=== PATIENT | female | born 1995 | race Caucasian/White ===

== ENCOUNTER 2021-11-17 14:03 | Observation (INO) | payer OTHER, SELFPAY ==
[~2021-11-17] VITALS: Ht 170.2 cm; Wt 113.4 kg
[2021-11-17 14:53] VITALS: BP 168/92
[2021-11-17] MEDS: BETAMETH ACET/BETAMETH NA PH 30 MG/5 ML VIAL IM SCH (16:08)
[2021-11-17 16:22] LABS: BASOPHILS % (AUTO) 0.5 % (0.0-2.0); EOSINOPHILS # (AUTO) 0.1 K/uL (0-0.4); EOSINOPHILS % (AUTO) 0.7 % (0.0-4.0); HEMATOCRIT 31.2 % (36-48); HEMOGLOBIN 10.5 g/dL (12.0-16.0); LYMPHOCYTES # (AUTO) 2.5 K/uL (2.5-16.5); LYMPHOCYTES % (AUTO) 28.4 % (20.5-51.1); MEAN CORPUSCULAR HEMOGLOBIN 25 pg (27-31); MEAN CORPUSCULAR HGB CONC 34 g/dL (33-37); MEAN CORPUSCULAR VOLUME 74.9 fL (80-94); MONOCYTES # (AUTO) 0.5 K/uL (0.8-1.0); MONOCYTES % (AUTO) 5.7 % (1.7-9.3); NEUTROPHILS # (AUTO) 5.6 K/uL (1.8-7.7); NEUTROPHILS % (AUTO) 64.7 % (42.2-75.2); PLATELET COUNT (AUTO) 271 K/uL (140-450); RED BLOOD CELL COUNT(AUTO) 4.17 MIL/uL (4.20-5.40); RED CELL DISTRIBUTION WIDTH 14.6 % (11.6-13.7); WHITE BLOOD COUNT (AUTO) 8.7 K/uL (4.8-10.8)
[2021-11-17 16:48] LABS: PROTHROMBIN TIME 9.5 secs (10.8-13.4)
[2021-11-17 16:58] LABS: ALBUMIN 2.8 g/dL (3.4-5.0); ANION GAP 14.4 (8-16); CREATININE 0.5 mg/dL (0.6-1.3); POTASSIUM 3.4 mmol/L (3.5-5.1); TOTAL BILIRUBIN 0.2 mg/dL (0.0-1.0); URIC ACID 3.8 mg/dL (2.6-7.2)
[2021-11-17] MEDS: LABETALOL 100 MG TAB PO SCH (17:28)
[2021-11-17 21:57] LABS: BILIRUBIN,URINE NEGATIVE (NEGATIVE); BLOOD, URINE NEGATIVE (NEGATIVE); COLOR,URINE YELLOW (YELLOW); LEUKOCYTE ESTERASE ,URINE 2+ (NEGATIVE); NITRITE, URINE POSITIVE (NEGATIVE); UGLUCOSE NEGATIVE (NEGATIVE)
[2021-11-17 22:04] LABS: APPEARANCE,URINE HAZY (CLEAR)
[2021-11-17 22:16] LABS: RBC,URINE 0-5 /HPF (0-5)
[2021-11-17 23:12] LABS: URINE TOTAL PROTEIN 14.9 mg/dL (0-12)
--- NOTE | 2021-11-18 08:33 | NUR ---
PATIENT HAS BEEN SCREENED AND CATEGORIZED LOW NUTRITION RISK. PATIENT WILL BE SEEN WITHIN 7 DAYS OF ADMISSION. 11/24/[address]
[2021-11-18] MEDS: LABETALOL 100 MG TAB PO SCH ×2 (09:15→13:11)
[2021-11-18] MEDS: BETAMETH ACET/BETAMETH NA PH 30 MG/5 ML VIAL IM SCH (16:08)
== END 2021-11-18 16:45 | disposition home or self-care (01) ==
LOC: MFCC 14:03
PROVIDERS: ADMIT Obstetrics & Gynecology; ATTEND Obstetrics & Gynecology
DX: O13.3 Gestational [pregnancy-induced] hypertension without significant proteinuria, third trimester (principal); Z20.822 Contact with and (suspected) exposure to COVID-19; Z3A.33 33 weeks gestation of pregnancy
CPT/HCPCS: 36415; 76819; 80053; 81001; 82570; 84550; 85025; 85384; 85610; 85730; 86870; 86886; 86900; 86901; 87086; 87426; 96372; G0378; J0702; Q0092

== ENCOUNTER 2021-11-21 14:56 | Observation (INO) | payer OTHER, SELFPAY ==
[~2021-11-21] VITALS: Ht 167.6 cm; Wt 111.1 kg
[2021-11-21 17:09] VITALS: BP 147/86
== END 2021-11-21 17:00 | disposition home or self-care (01) ==
LOC: MLD 14:56
PROVIDERS: ADMIT Obstetrics & Gynecology; ATTEND Obstetrics & Gynecology
DX: O36.8330 Maternal care for abnormalities of the fetal heart rate or rhythm, third trimester, not applicable or unspecified (principal); Z3A.34 34 weeks gestation of pregnancy
CPT/HCPCS: 59025; 81000; G0378

== ENCOUNTER 2021-11-27 14:26 | Observation (INO) | payer OTHER, SELFPAY ==
[~2021-11-27] VITALS: Ht 167.6 cm; Wt 113.4 kg
[2021-11-27] MEDS ORDERED: LABE200T9 PO (15:09)
[2021-11-27] MEDS ORDERED: PREN-371 PO (15:09)
[2021-11-27 16:51] LABS: BASOPHILS % (AUTO) 0.5 % (0.0-2.0); EOSINOPHILS # (AUTO) 0.1 K/uL (0-0.4); EOSINOPHILS % (AUTO) 0.8 % (0.0-4.0); HEMATOCRIT 29.2 % (36-48); HEMOGLOBIN 9.6 g/dL (12.0-16.0); LYMPHOCYTES # (AUTO) 1.7 K/uL (2.5-16.5); LYMPHOCYTES % (AUTO) 20.4 % (20.5-51.1); MEAN CORPUSCULAR HEMOGLOBIN 24 pg (27-31); MEAN CORPUSCULAR HGB CONC 33 g/dL (33-37); MONOCYTES # (AUTO) 0.9 K/uL (0.8-1.0); MONOCYTES % (AUTO) 10.2 % (1.7-9.3); NEUTROPHILS # (AUTO) 5.8 K/uL (1.8-7.7); NEUTROPHILS % (AUTO) 68.1 % (42.2-75.2); PLATELET COUNT (AUTO) 257 K/uL (140-450); RED BLOOD CELL COUNT(AUTO) 3.95 MIL/uL (4.20-5.40); WHITE BLOOD COUNT (AUTO) 8.5 K/uL (4.8-10.8)
[2021-11-27 17:21] LABS: PROTHROMBIN TIME 9.2 secs (10.8-13.4)
[2021-11-27 17:23] LABS: ALBUMIN 2.5 g/dL (3.4-5.0); ANION GAP 12.7 (8-16); CREATININE 0.5 mg/dL (0.6-1.3); POTASSIUM 3.7 mmol/L (3.5-5.1); TOTAL BILIRUBIN 0.2 mg/dL (0.0-1.0); URIC ACID 3.7 mg/dL (2.6-7.2)
[2021-11-27 17:44] LABS: BILIRUBIN,URINE NEGATIVE (NEGATIVE); BLOOD, URINE NEGATIVE (NEGATIVE); LEUKOCYTE ESTERASE ,URINE 2+ (NEGATIVE); NITRITE, URINE POSITIVE (NEGATIVE); UGLUCOSE NEGATIVE (NEGATIVE)
[2021-11-27 17:57] LABS: APPEARANCE,URINE HAZY (CLEAR); COLOR,URINE STRAW (YELLOW)
[2021-11-27 18:05] LABS: RBC,URINE NONE SEEN /HPF (0-5)
[2021-11-27 18:06] LABS: WBC,URINE 20-60 /HPF (0-5)
[2021-11-27 19:08] LABS: URINE TOTAL PROTEIN 13.5 mg/dL (0-12)
== END 2021-11-27 19:25 | disposition home or self-care (01) ==
LOC: MLD 14:26
PROVIDERS: ADMIT Obstetrics & Gynecology; ATTEND Obstetrics & Gynecology
DX: O36.8130 Decreased fetal movements, third trimester, not applicable or unspecified (principal); Z20.822 Contact with and (suspected) exposure to COVID-19; O10.913 Unspecified pre-existing hypertension complicating pregnancy, third trimester; Z3A.34 34 weeks gestation of pregnancy
CPT/HCPCS: 36415; 59025; 76819; 80053; 81001; 82570; 84550; 85025; 85384; 85610; 85730; 87086; 87426; G0378; G0379; Q0092